=== PATIENT | male | born 1950 | race Caucasian/White ===

== ENCOUNTER 2017-11-13 23:06 | Inpatient (IN) | payer MEDICARE, BC ==
[~2017-11-13] VITALS: Ht 188 cm; Wt 95.0 kg
[2017-11-13] MEDS ORDERED: magnesium 2GM in 50ml NS 50 ML IV ONE (23:20)
[2017-11-13] MEDS ORDERED: sodium bicarbonate (0.9mEq/ml) 44.6 mEq/50ml syringe IV ONE ×2 (23:20→23:40)
[2017-11-13 23:30] LABS: BASOPHILS # (AUTO) 0.1 X10'3 (0-0.2); BASOPHILS % (AUTO) 0.5 % (0-1); EOSINOPHILS # (AUTO) 0.1 X10'3 (0-0.9); HEMATOCRIT 47.4 % (42.0-52.0); HEMOGLOBIN 15.6 g/dl (14.0-17.9); LYMPHOCYTES # (AUTO) 2.6 X10'3 (1.1-4.8); LYMPHOCYTES % (AUTO) 20.4 % (21-51); MEAN CORPUSCULAR VOLUME 96.9 FL (78-98); MEAN PLATELET VOLUME 8.6 FL (7.4-10.4); MONOCYTES % (AUTO) 7.8 % (2-12); NEUTROPHILS % (AUTO) 70.3 % (42-75); PLATELET COUNT 198 X10'3 (140-440); RED BLOOD COUNT 4.89 X10'6 (4.70-6.10); RED CELL DISTRIBUTION WIDTH 16.1 % (11.5-14.5); WHITE BLOOD COUNT 12.9 X10'3 (4.5-11.0)
[2017-11-13 23:36] LABS: ABG BASE EXCESS -21.5 mmol/L (-2.0-3.0); ABG HCO3 6.9 mmol/L (22.0-26.0); ABG OXYGEN SATURATION 98.4 % (95-98); ABG PCO2 (T) 23.8 mmHg (35.0-48.0); ABG PH (T) 7.081 (7.350-7.450); ABG PO2 (T) 167.8 mmHg (83-108); ALLEN'S TEST Positive; FCOHb 0.4 % (0.5-1.5); FLOW 6 L/min; FMetHb 0.3 % (0.3-1.12); FO2Hb 97.7 % (94-100); PATIENT TEMPERATURE 36.7; RESPIRATORY RATE (OBSERVED) 24 b/min; TOTAL HEMOGLOBIN 15.7 G/dl (14.0-18.0)
[2017-11-13 23:37] LABS: INR 1.2 INR; PARTIAL THROMBOPLASTIN TIME 28 SECONDS (22-32)
[2017-11-13 23:44] LABS: ALANINE AMINOTRANSFERASE 50 U/L (12-78); ALBUMIN 3.7 G/DL (3.4-5.0); ALBUMIN/GLOBULIN RATIO 0.8 (1.1-1.5); ALKALINE PHOSPHATASE 151 IU/L (46-116); ANION GAP 22 (8-16); ASPARTATE AMINO TRANSFERASE 42 U/L (10-37); BILIRUBIN,TOTAL 0.9 MG/DL (0.1-1.0); BLOOD UREA NITROGEN 38 MG/DL (7-18); BUN/CREATININE RATIO 16.7 (5.4-32.0); CALCIUM 9.6 MG/DL (8.5-10.1); CHLORIDE 100 MMOL/L (99-107); CREATININE 2.27 MG/DL (0.60-1.10); GLUCOSE 239 MG/DL (70-104); POTASSIUM 3.8 MMOL/L (3.5-5.1); SODIUM 137 MMOL/L (135-145); TOTAL CARBON DIOXIDE 15.4 MMOL/L (24-32); TOTAL PROTEIN 8.3 G/DL (6.4-8.2); eGFR 29 ML/MIN
[2017-11-13 23:46] LABS: ETHANOL < 0.010 GM/DL (0.0-0.010); LIPASE 336 U/L (73-393); MAGNESIUM 2.9 MG/DL (1.5-2.4)
[2017-11-14] VITALS (21 sets, daily range): BP systolic 97–142; BP diastolic 68–92
[2017-11-14] MEDS ORDERED: sodium bicarbonate (8.4%) inj. 150 MEQ in dextrose 5%-water 1,000 ML IV SCH ×2 (00:57→02:30)
[2017-11-14] MEDS ORDERED: sodium bicarbonate 1 MEQ/1 ml inj ONE (01:13)
[2017-11-14 01:24] LABS: CLARITY,URINE CLEAR (Clear); COLOR,URINE YELLOW (Yellow); GLUCOSE, URINE NEGATIVE (Neg); KETONES,URINE NEGATIVE (Neg); LEUKOCYTE ESTERASE ,URINE NEGATIVE (Neg); NITRITES, URINE NEGATIVE (Neg); OCCULT BLOOD,URINE MODERATE (Neg); PROTEIN,URINE 100 mg/dl (Neg)
[2017-11-14 01:25] LABS: URINE AMPHETAMINE SCREEN NEGATIVE (Neg); URINE BARBITUATE SCREEN NEGATIVE (Neg); URINE BENZODIAZEPINES SCREEN NEGATIVE (Neg); URINE CANNABINOID SCREEN NEGATIVE (Neg); URINE COCAINE SCREEN NEGATIVE (Neg); URINE METHADONE SCREEN NEGATIVE (Neg); URINE OPIATE SCREEN NEGATIVE (Neg); URINE PHENCYCLIDINE SCREEN NEGATIVE (Neg)
[2017-11-14 01:27] LABS: UA COLLECTION TYPE FOLEY CATH
[2017-11-14 01:39] LABS: BACTERIA,URINE FEW /HPF (Neg); MUCUS STRANDS FEW /LPF (Neg); SQUAMOUS EPITHELIAL CELL,UR FEW /LPF (FEW)
[2017-11-14 01:59] LABS: RENAL CELLS, URINE FEW /HPF; TRANSITIONAL EPI CELLS,URINE FEW /HPF
[2017-11-14] MEDS ORDERED: ondansetron/PF 4mg/2ml inj IV PRN (02:15)
[2017-11-14] MEDS ORDERED: morphine 4 MG/ML inj SYRINge IV PRN ×2 (02:15)
[2017-11-14] MEDS ORDERED: magnesium 2GM in 50ml NS 50 ML IV PRN (02:15)
[2017-11-14] MEDS ORDERED: magnesium hydroxide 30ml (MOM) UD suspension PO PRN (02:15)
[2017-11-14] MEDS ORDERED: potassium Cl 20 mEq SR tablet PO PRN ×2 (02:15)
[2017-11-14] MEDS ORDERED: magnesium 4gm in 100ml NS 100 ML IV PRN (02:15)
[2017-11-14] MEDS ORDERED: acetaminophen 325mg tablet PO PRN ×2 (02:15)
[2017-11-14] MEDS ORDERED: magnesium Cl slow-release 64mg tablet PO PRN (02:15)
[2017-11-14] MEDS ORDERED: potassium Cl 40MEQ/NS 500ml 500 ML IV PRN ×2 (02:15)
[2017-11-14] MEDS: K, MAG and/or Phos replacement - Verify level? MC SCH ×2 (02:15→06:47)
[2017-11-14] MEDS ORDERED: POTA10TA19 PO (03:20)
[2017-11-14] MEDS ORDERED: SPIR100T3 PO (03:20)
[2017-11-14] MEDS ORDERED: FURO40TA4 PO (03:20)
[2017-11-14 05:45] LABS: BASOPHILS % (AUTO) 0.2 % (0-1); EOSINOPHILS # (AUTO) 0.1 X10'3 (0-0.9); EOSINOPHILS % (AUTO) 0.9 % (0-6); HEMATOCRIT 39.2 % (42.0-52.0); HEMOGLOBIN 13.3 g/dl (14.0-17.9); LYMPHOCYTES # (AUTO) 0.5 X10'3 (1.1-4.8); LYMPHOCYTES % (AUTO) 5.9 % (21-51); MEAN CORPUSCULAR HEMOGLOBIN 32.1 PG (27.0-31.0); MEAN CORPUSCULAR HGB CONC 33.9 % (33.0-36.5); MEAN CORPUSCULAR VOLUME 94.7 FL (78-98); MEAN PLATELET VOLUME 8.3 FL (7.4-10.4); MONOCYTES % (AUTO) 11.6 % (2-12); NEUTROPHILS # (AUTO) 7.2 X10'3 (1.8-7.7); NEUTROPHILS % (AUTO) 81.4 % (42-75); PLATELET COUNT 185 X10'3 (140-440); RED BLOOD COUNT 4.14 X10'6 (4.70-6.10); RED CELL DISTRIBUTION WIDTH 15.7 % (11.5-14.5); WHITE BLOOD COUNT 8.9 X10'3 (4.5-11.0)
[2017-11-14 05:46] LABS: ALANINE AMINOTRANSFERASE 63 U/L (12-78); ALBUMIN 3.2 G/DL (3.4-5.0); ALBUMIN/GLOBULIN RATIO 0.8 (1.1-1.5); ALKALINE PHOSPHATASE 128 IU/L (46-116); ANION GAP 10 (8-16); ASPARTATE AMINO TRANSFERASE 68 U/L (10-37); BILIRUBIN,TOTAL 0.7 MG/DL (0.1-1.0); BLOOD UREA NITROGEN 42 MG/DL (7-18); BUN/CREATININE RATIO 24.6 (5.4-32.0); CHLORIDE 101 MMOL/L (99-107); CREATININE 1.71 MG/DL (0.60-1.10); GLUCOSE 132 MG/DL (70-104); POTASSIUM 4.6 MMOL/L (3.5-5.1); SODIUM 137 MMOL/L (135-145); TOTAL CARBON DIOXIDE 26.3 MMOL/L (24-32); TOTAL PROTEIN 7.1 G/DL (6.4-8.2); eGFR 40 ML/MIN
[2017-11-14] MEDS: enoxaparin 40mg/0.4ml syringe SUBCUT SCH (07:40)
[2017-11-14] MEDS ORDERED: magnesium sulf 1 GM/2 ML ONE (10:00)
[2017-11-14] MEDS ORDERED: etomidate 2mg/ml inj. ONE (10:00)
[2017-11-14] MEDS ORDERED: sodium bicarbonate (8.4%) 1 mEq/ml syringe ONE (10:00)
[2017-11-14] MEDS: magnesium Cl slow-release 64mg tablet PO SCH (16:22)
[2017-11-14] MEDS: sodium bicarbonate (8.4%) inj. 150 MEQ in sodium chloride 0.45% 850 ML IV SCH (20:50)
[2017-11-14] MEDS: carVEDilol 3.125mg tablet PO SCH (20:51)
[2017-11-14] MEDS: amiodarone 200mg tablet PO SCH (20:51)
[2017-11-14] MEDS: acetylcysteine 200 MG/ml 4ml vial PO SCH (20:52)
[2017-11-15] VITALS (23 sets, daily range): BP systolic 90–110; BP diastolic 66–84
[2017-11-15 05:30] LABS: BASOPHILS % (AUTO) 0.4 % (0-1); EOSINOPHILS # (AUTO) 0.1 X10'3 (0-0.9); EOSINOPHILS % (AUTO) 2.4 % (0-6); HEMATOCRIT 36.2 % (42.0-52.0); HEMOGLOBIN 12.2 g/dl (14.0-17.9); LYMPHOCYTES % (AUTO) 16.1 % (21-51); MEAN CORPUSCULAR HGB CONC 33.6 % (33.0-36.5); MEAN CORPUSCULAR VOLUME 95.1 FL (78-98); MEAN PLATELET VOLUME 8.4 FL (7.4-10.4); MONOCYTES # (AUTO) 0.6 X10'3 (0-0.9); MONOCYTES % (AUTO) 10.3 % (2-12); NEUTROPHILS # (AUTO) 4.5 X10'3 (1.8-7.7); NEUTROPHILS % (AUTO) 70.8 % (42-75); PLATELET COUNT 154 X10'3 (140-440); RED BLOOD COUNT 3.81 X10'6 (4.70-6.10); RED CELL DISTRIBUTION WIDTH 15.5 % (11.5-14.5); WHITE BLOOD COUNT 6.3 X10'3 (4.5-11.0)
[2017-11-15 06:06] LABS: ALANINE AMINOTRANSFERASE 64 U/L (12-78); ALBUMIN 3.1 G/DL (3.4-5.0); ALBUMIN/GLOBULIN RATIO 0.9 (1.1-1.5); ALKALINE PHOSPHATASE 108 IU/L (46-116); ANION GAP 8 (8-16); ASPARTATE AMINO TRANSFERASE 56 U/L (10-37); BILIRUBIN,TOTAL 0.5 MG/DL (0.1-1.0); BLOOD UREA NITROGEN 35 MG/DL (7-18); BUN/CREATININE RATIO 25.2 (5.4-32.0); CALCIUM 8.6 MG/DL (8.5-10.1); CHLORIDE 101 MMOL/L (99-107); CHOL/HDL RATIO 2.8 (0.00-4.99); CHOLESTEROL 108 MG/DL (0-200); CREATININE 1.39 MG/DL (0.60-1.10); GLUCOSE 119 MG/DL (70-104); HDL CHOLESTEROL 39 MG/DL (35-60); LDL CHOLESTEROL 60 MG/DL (50-100); MAGNESIUM 2.3 MG/DL (1.5-2.4); PHOSPHORUS 3.7 MG/DL (2.3-4.5); POTASSIUM 4.1 MMOL/L (3.5-5.1); SODIUM 135 MMOL/L (135-145); TOTAL CARBON DIOXIDE 25.9 MMOL/L (24-32); TOTAL PROTEIN 6.7 G/DL (6.4-8.2); TRIGLYCERIDES 60 MG/DL (20-135); eGFR 51 ML/MIN
[2017-11-15] MEDS: K, MAG and/or Phos replacement - Verify level? MC SCH (08:00)
[2017-11-15] MEDS: potassium Cl 20 mEq SR tablet PO SCH ×2 (08:00→08:59)
[2017-11-15] MEDS: acetylcysteine 200 MG/ml 4ml vial PO SCH ×2 (08:00→20:21)
[2017-11-15] MEDS: sodium bicarbonate (8.4%) inj. 150 MEQ in sodium chloride 0.45% 850 ML IV SCH ×2 (08:54→20:28)
[2017-11-15] MEDS: carVEDilol 3.125mg tablet PO SCH ×2 (08:59→20:00)
[2017-11-15] MEDS: magnesium Cl slow-release 64mg tablet PO SCH ×2 (08:59→20:20)
[2017-11-15] MEDS: amiodarone 200mg tablet PO SCH ×3 (08:59→20:19)
[2017-11-15] MEDS: enoxaparin 40mg/0.4ml syringe SUBCUT SCH (09:00)
[2017-11-15] MEDS ORDERED: LIDOcaine 1% w/EPI 1:100,000 30ml vial (MDV) ONE (12:59)
[2017-11-15] MEDS ORDERED: midazolam 2 mg/2 ml injection ONE (12:59)
[2017-11-15] MEDS ORDERED: heparin 1,000unit/ml 10ml vial 10 ML ONE (12:59)
[2017-11-15] MEDS ORDERED: nitroGLYCERIN-Tridil 50MG/D5W 250 ML IV ONE (12:59)
[2017-11-15] MEDS ORDERED: iohexol 350 MG/ML 50ML vial IV ONE (12:59)
[2017-11-15] MEDS ORDERED: fentaNYL/PF 50MCG/1 ML 2ML syringe ONE (12:59)
[2017-11-15] MEDS ORDERED: iohexol 350MG/ML 100ml bottle IV ONE (13:00)
[2017-11-15 14:25] LABS: ISTAT HGB ART 12.6 g/dl (14.0-18.0); ISTAT Hct ART 37 %PCV (42-52); ISTAT O2 SATURATION ARTERIAL 95 % (95-98); ISTAT SOURCE ART
[2017-11-15] MEDS: sacubitril/valsartan 24mg-26mg tablet PO SCH (20:00)
[2017-11-16] VITALS (24 sets, daily range): BP systolic 90–125; BP diastolic 63–88
[2017-11-16 05:10] LABS: BASOPHILS % (AUTO) 0.6 % (0-1); EOSINOPHILS # (AUTO) 0.1 X10'3 (0-0.9); EOSINOPHILS % (AUTO) 1.8 % (0-6); HEMATOCRIT 38.3 % (42.0-52.0); HEMOGLOBIN 12.9 g/dl (14.0-17.9); LYMPHOCYTES % (AUTO) 14.4 % (21-51); MEAN CORPUSCULAR HEMOGLOBIN 32.1 PG (27.0-31.0); MEAN CORPUSCULAR HGB CONC 33.7 % (33.0-36.5); MEAN CORPUSCULAR VOLUME 95.2 FL (78-98); MEAN PLATELET VOLUME 8.7 FL (7.4-10.4); MONOCYTES # (AUTO) 0.8 X10'3 (0-0.9); MONOCYTES % (AUTO) 11.2 % (2-12); NEUTROPHILS # (AUTO) 5.2 X10'3 (1.8-7.7); PLATELET COUNT 166 X10'3 (140-440); RED BLOOD COUNT 4.02 X10'6 (4.70-6.10); RED CELL DISTRIBUTION WIDTH 15.6 % (11.5-14.5); WHITE BLOOD COUNT 7.2 X10'3 (4.5-11.0)
[2017-11-16 05:35] LABS: ALANINE AMINOTRANSFERASE 51 U/L (12-78); ALBUMIN/GLOBULIN RATIO 0.8 (1.1-1.5); ALKALINE PHOSPHATASE 100 IU/L (46-116); ANION GAP 7 (8-16); ASPARTATE AMINO TRANSFERASE 35 U/L (10-37); BILIRUBIN,TOTAL 0.7 MG/DL (0.1-1.0); BLOOD UREA NITROGEN 34 MG/DL (7-18); BUN/CREATININE RATIO 24.3 (5.4-32.0); CHLORIDE 100 MMOL/L (99-107); GLUCOSE 123 MG/DL (70-104); MAGNESIUM 2.4 MG/DL (1.5-2.4); PHOSPHORUS 3.8 MG/DL (2.3-4.5); POTASSIUM 4.5 MMOL/L (3.5-5.1); SODIUM 135 MMOL/L (135-145); TOTAL CARBON DIOXIDE 28.1 MMOL/L (24-32); TOTAL PROTEIN 6.8 G/DL (6.4-8.2); eGFR 51 ML/MIN
[2017-11-16] MEDS: K, MAG and/or Phos replacement - Verify level? MC SCH (08:00)
[2017-11-16] MEDS: acetylcysteine 200 MG/ml 4ml vial PO SCH ×2 (08:00→19:54)
[2017-11-16] MEDS: potassium Cl 20 mEq SR tablet PO SCH (08:00)
[2017-11-16] MEDS: magnesium Cl slow-release 64mg tablet PO SCH ×2 (08:00→19:51)
[2017-11-16] MEDS: carVEDilol 3.125mg tablet PO SCH ×3 (08:00→19:52)
[2017-11-16] MEDS: sacubitril/valsartan 24mg-26mg tablet PO SCH ×2 (09:26→19:52)
[2017-11-16] MEDS: amiodarone 200mg tablet PO SCH ×2 (09:26→19:51)
[2017-11-16] MEDS: spironolactone 25 MG tablet PO SCH (09:27)
[2017-11-16] MEDS: enoxaparin 40mg/0.4ml syringe SUBCUT SCH (09:28)
[2017-11-17] VITALS (12 sets, daily range): BP systolic 64–119; BP diastolic 45–89
[2017-11-17 06:02] LABS: BASOPHILS % (AUTO) 0.8 % (0-1); EOSINOPHILS # (AUTO) 0.2 X10'3 (0-0.9); HEMATOCRIT 35.7 % (42.0-52.0); LYMPHOCYTES % (AUTO) 17.9 % (21-51); MEAN CORPUSCULAR HGB CONC 33.6 % (33.0-36.5); MEAN CORPUSCULAR VOLUME 95.2 FL (78-98); MEAN PLATELET VOLUME 8.8 FL (7.4-10.4); MONOCYTES # (AUTO) 0.7 X10'3 (0-0.9); MONOCYTES % (AUTO) 11.6 % (2-12); NEUTROPHILS # (AUTO) 3.8 X10'3 (1.8-7.7); NEUTROPHILS % (AUTO) 66.7 % (42-75); PLATELET COUNT 143 X10'3 (140-440); RED BLOOD COUNT 3.75 X10'6 (4.70-6.10); RED CELL DISTRIBUTION WIDTH 15.5 % (11.5-14.5); WHITE BLOOD COUNT 5.7 X10'3 (4.5-11.0)
[2017-11-17 06:43] LABS: ALANINE AMINOTRANSFERASE 48 U/L (12-78); ALBUMIN 2.9 G/DL (3.4-5.0); ALBUMIN/GLOBULIN RATIO 0.8 (1.1-1.5); ALKALINE PHOSPHATASE 94 IU/L (46-116); ANION GAP 8 (8-16); ASPARTATE AMINO TRANSFERASE 28 U/L (10-37); BILIRUBIN,TOTAL 0.7 MG/DL (0.1-1.0); BLOOD UREA NITROGEN 32 MG/DL (7-18); BUN/CREATININE RATIO 23.2 (5.4-32.0); CALCIUM 8.5 MG/DL (8.5-10.1); CHLORIDE 102 MMOL/L (99-107); CREATININE 1.38 MG/DL (0.60-1.10); GLUCOSE 109 MG/DL (70-104); MAGNESIUM 2.1 MG/DL (1.5-2.4); PHOSPHORUS 4.4 MG/DL (2.3-4.5); POTASSIUM 4.1 MMOL/L (3.5-5.1); SODIUM 136 MMOL/L (135-145); TOTAL CARBON DIOXIDE 25.9 MMOL/L (24-32); TOTAL PROTEIN 6.5 G/DL (6.4-8.2); eGFR 52 ML/MIN
[2017-11-17] MEDS: carVEDilol 3.125mg tablet PO SCH (08:00)
[2017-11-17] MEDS: acetylcysteine 200 MG/ml 4ml vial PO SCH (08:00)
[2017-11-17] MEDS: K, MAG and/or Phos replacement - Verify level? MC SCH (08:00)
[2017-11-17] MEDS: magnesium Cl slow-release 64mg tablet PO SCH (08:00)
[2017-11-17] MEDS: sacubitril/valsartan 24mg-26mg tablet PO SCH (08:00)
[2017-11-17] MEDS: potassium Cl 20 mEq SR tablet PO SCH (08:00)
[2017-11-17] MEDS: spironolactone 25 MG tablet PO SCH (08:30)
[2017-11-17] MEDS: amiodarone 200mg tablet PO SCH (10:22)
[2017-11-17] MEDS: enoxaparin 40mg/0.4ml syringe SUBCUT SCH (10:23)
[2017-11-17] MEDS ORDERED: COR3.125T PO (12:41)
[2017-11-17] MEDS ORDERED: SACU1TAB PO (12:41)
[2017-11-17] MEDS ORDERED: AMIO200T57 PO (12:41)
[2017-11-18 09:20] LABS: ISTAT Hct MIX 37 %PCV (42-52); ISTAT O2 SATURATION MIX VENOUS 50 % (60-80); ISTAT SOURCE MIX
[2017-11-30] MEDS ORDERED: amiodarone 200mg tablet PO SCH (08:00)
[2017-12-14] MEDS ORDERED: amiodarone 200mg tablet PO SCH (08:00)
== END 2017-11-17 14:00 | disposition home or self-care (01) | DRG 286 ==
LOC: EDBD 23:09 → ER 23:09 → ED HOLD 11-14 02:15 → CICU 2S 11-14 03:30
PROVIDERS: ADMIT Internal Medicine Critical Care Medicine
PROC: 5A2204Z Restoration of Cardiac Rhythm, Single (ICD-10-PCS; 2017-11-13)
PROC: 4A023N8 Measurement of Cardiac Sampling and Pressure, Bilateral, Percutaneous Approach (ICD-10-PCS; principal; 2017-11-15)
PROC: B2111ZZ Fluoroscopy of Multiple Coronary Arteries using Low Osmolar Contrast (ICD-10-PCS; 2017-11-15)
PROC: B2151ZZ Fluoroscopy of Left Heart using Low Osmolar Contrast (ICD-10-PCS; 2017-11-15)
DX: I47.2 Ventricular tachycardia (principal); G92 Toxic encephalopathy; N17.9 Acute kidney failure, unspecified; E87.2 Acidosis; I08.1 Rheumatic disorders of both mitral and tricuspid valves; I27.20 Pulmonary hypertension, unspecified; R18.8 Other ascites; I42.9 Cardiomyopathy, unspecified; I12.9 Hypertensive chronic kidney disease with stage 1 through stage 4 chronic kidney disease, or unspecified chronic kidney disease; N18.9 Chronic kidney disease, unspecified; T68.XXXA Hypothermia, initial encounter; F17.210 Nicotine dependence, cigarettes, uncomplicated; I25.10 Atherosclerotic heart disease of native coronary artery without angina pectoris; J44.9 Chronic obstructive pulmonary disease, unspecified; K74.60 Unspecified cirrhosis of liver; Z80.0 Family history of malignant neoplasm of digestive organs; Z86.73 Personal history of transient ischemic attack (TIA), and cerebral infarction without residual deficits; Z79.899 Other long term (current) drug therapy
CPT/HCPCS: 36415; 36600; 70450; 71045; 74176; 80053; 80061; 80305; 80320; 81001; 82140; 82803; 83605; 83690; 83735; 83880; 84100; 84484; 85014; 85018; 85025; 85610; 85730; 87040; 87070; 87088; 92960; 93005; 93306; 93460; 96365; 99152; 99153; 99291; A4620; A6213; A6257; C1760; C1769; J1644; J1650; J2250; J2270; J3010; J3475; J3490; J7030; J7070; Q9967